=== PATIENT | male | born 1950 | race Caucasian/White ===

== ENCOUNTER 2019-08-20 08:35 | Emergency (ER) | payer OTHER ==
[~2019-08-20] VITALS: Ht 175.3 cm; Wt 79.4 kg
== END 2019-08-20 09:28 | disposition home or self-care (01) ==
LOC: ER 08:35
DX: Z00.00 Encounter for general adult medical examination without abnormal findings (principal); F17.200 Nicotine dependence, unspecified, uncomplicated
CPT/HCPCS: 99282

== ENCOUNTER 2019-09-16 22:03 | Emergency (ER) | payer OTHER ==
[~2019-09-16] VITALS: Ht 165.1 cm; Wt 78.9 kg
== END 2019-09-16 22:48 | disposition home or self-care (01) ==
LOC: ER 22:03
DX: F10.10 Alcohol abuse, uncomplicated (principal); F17.200 Nicotine dependence, unspecified, uncomplicated
CPT/HCPCS: 99282

== ENCOUNTER 2019-09-28 08:02 | Emergency (ER) | payer OTHER ==
[~2019-09-28] VITALS: Ht 167.6 cm; Wt 81.7 kg
== END 2019-09-28 10:20 | disposition home or self-care (01) ==
LOC: ER 08:02
DX: S61.213A Laceration without foreign body of left middle finger without damage to nail, initial encounter (principal); S00.01XA Abrasion of scalp, initial encounter; F17.200 Nicotine dependence, unspecified, uncomplicated; Z23 Encounter for immunization; Y04.2XXA Assault by strike against or bumped into by another person, initial encounter
CPT/HCPCS: 12002; 70450; 73120; 90471; 90714; 99284-25; A9270-GY

== ENCOUNTER 2019-10-02 16:12 | Emergency (ER) | payer OTHER ==
[~2019-10-02] VITALS: Ht 172.7 cm; Wt 81.7 kg
[2019-10-02] MEDS ORDERED: DOXY100 PO (17:19)
== END 2019-10-02 17:36 | disposition home or self-care (01) ==
LOC: ER 16:12
DX: L03.114 Cellulitis of left upper limb (principal); F17.200 Nicotine dependence, unspecified, uncomplicated
CPT/HCPCS: 99283